=== PATIENT | male | born 1960 | race African-American/Black ===

== ENCOUNTER 2021-06-12 23:19 | Emergency (ER) | payer SELFPAY ==
[2021-06-12 23:44] VITALS: BP 152/80; PULSE 101; RESP 18; TEMP 36.8; O2SAT 98; BMI 22.5
--- NOTE | 2021-06-13 00:12 | XRR_ITS ---
PROCEDURE INFORMATION: Exam: XR Chest Exam date and time: 06/13/2021 12:12 AM Age: 60 years old Clinical indication: Pain; Chest pressure; Patient HX: C/O chest discomfort x 3 days. ; Additional info: Cp TECHNIQUE: Imaging protocol: XR of the chest. Views: 1 view. COMPARISON: No relevant prior studies available. FINDINGS: Lungs: Unremarkable. No consolidation. Pleural spaces: Unremarkable. No pleural effusion. No pneumothorax. Heart/Mediastinum: Unremarkable. No cardiomegaly. Bones/joints: No acute findings. XR/XR chest 1V portable [id number] IMPRESSION: No acute findings.
[2021-06-13 02:34] VITALS: BP 143/81; PULSE 97; RESP 14; TEMP 36.7; O2SAT 98
--- NOTE | 2021-06-13 02:36 | W.ED.GENADLT ---
HPI - General Adult General: Chief complaint: General Medical Stated complaint: TIRED Time Seen by Provider: 06/13/21 00:34 Source: patient Mode of arrival: ambulatory Limitations: no limitations History of Present Illness: 60-year-old male states that he recently got out of intermediate states that he has been walking around his been having feet pain along with chest pain over the last 2 days from walking states the pain has been constant states that it is a 4 out of 10. He denies any shortness of breath denies any worsening improving factors denies any vomiting or diarrhea. Associated symptoms: Reports chest pain; Deny dyspnea, headache(s), nausea, rash or vomiting Review of Systems Const: Denies: fever(s), chills, body aches or change in appetite Eyes: Denies: blurry vision or eye discomfort ENMT: Denies: throat pain or dental pain Card: Reports: chest pain Resp: Denies: dyspnea GI: Denies: abdominal pain, nausea, vomiting or diarrhea : Denies: dysuria Musc: Denies: neck pain or back pain Skin/Breast: Denies: rash Neuro: Denies: headache(s) Psych: Denies: depression Joni/Lymph: Denies: easy bruising All/Imm: Denies: urticaria PFSH ED PFSH: Family History (Updated 06/13/21 @ 02:39 by Dianne Vang MD) Denies family history of Cancer Social History (Updated 06/13/21 @ 02:39 by Dianne Vang MD) Alcohol intake: current Physical Exam Const: COMMON NORMALS: no acute distress, patient oriented x3 and healthy appearing HENMT: COMMON NORMALS: normocephalic and atraumatic HEAD & SCALP: normocephalic and atraumatic Eye: COMMON NORMALS: Equal, round and reactive pupils present and EOMs intact bilaterally PUPIL: Yes Equal, round and reactive pupils present Neck/C-Spine: COMMON NORMALS: full ROM and supple Chest: COMMONS NORMALS: normal inspection of the chest and normal palpation of entire chest wall Resp: COMMON NORMALS: normal respiratory effort, No retractions, No use of accessory muscles and clear to auscultation bilaterally AUSCULTATION: clear to auscultation bilaterally Cardio: COMMON NORMALS: regular rate, regular rhythm and No murmurs present (Cardio) RATE: regular rate RHYTHM: regular rhythm GI: COMMON NORMALS: Normal to inspection, nondistended, normoactive bowel sounds present, Soft to palpation, non-tender and no masses PALPATION: Yes Soft to palpation Extremity: COMMON NORMALS: normal to inspection and full ROM Neuro: COMMON NORMALS: patient oriented x3, moves all extremities and no focal motor deficits Psych: COMMON NORMALS: mental status grossly normal, Normal thought process present and cooperative THOUGHT PROCESS: Normal thought process present Skin: COMMON NORMALS: no rashes or lesions noted and no wounds GENERAL SKIN EXAM: no rashes or lesions noted Course Vital Signs: Vital signs: Vital Signs Temperature 98.1 F 06/13/21 02:34 Pulse Rate 97 06/13/21 02:34 Respiratory Rate 14 06/13/21 02:34 Blood Pressure 143/81 06/13/21 02:34 Pulse Oximetry 98 06/13/21 02:[address] [facility] - General Adult Medical Decision Making Patient presents here with chest pain is atypical in nature is been going on for days troponin EKG x-ray are all normal he is well-appearing here no signs of dissection or pulmonary embolism he is stable for discharge is to follow-up with PCP and return if worsening. Lab Data : 06/13/21 02:36 06/13/21 02:36 Radiology Impressions Chest X-Ray 06/13/21 00:12 IMPRESSION: No acute findings. Laboratory Results WBC 11.1 10^3/uL (4.0-10.0) H 06/13/21 02:36 RBC 4.69 10^6/uL (4.1-5.3) 06/13/21 02:36 Hgb 13.9 g/dL (11.7-16.6) 06/13/21 02:36 Hct 43.0 % (42.0-52.0) 06/13/21 02:36 MCV 91.7 fl (80-94) 06/13/21 02:36 MCH 29.6 pg (28.0-34.0) 06/13/21 02:36 MCHC 32.3 g/dL (30.0-36.0) 06/13/21 02:36 RDW 12.4 % (12.1-15.1) 06/13/21 02:36 Plt Count 401 10^3/cmm (130-400) H 06/13/21 02:36 MPV 9.2 fL (7.4-10.4) 06/13/21 02:36 Neut % (Auto) 61.1 % 06/13/21 02:36 Lymph % (Auto) 21.0 % 06/13/21 02:36 [place] % (Auto) 13.5 % 06/13/21 02:36 Eos % (Auto) 2.7 % 06/13/21 02:36 Baso % (Auto) 1.1 % 06/13/21 02:36 Neut # (Auto) 6.76 10^3/uL (1.8-7.7) 06/13/21 02:36 Lymph # (Auto) 2.3 10^3/uL (0.8-4.8) 06/13/21 02:36 [place] # (Auto) 1.5 10^3/uL (0.2-0.9) H 06/13/21 02:36 Eos # (Auto) 0.3 10^3/uL (0.0-0.8) 06/13/21 02:36 Baso # (Auto) 0.1 10^3/uL (0.0-0.1) 06/13/21 02:36 Nucleated RBC % (auto) 0 % 06/13/21 02:36 Nucleated RBCs # 0.0 /100WBC 06/13/21 02:36 Sodium 140 mmol/L (136-145) 06/13/21 02:36 Potassium 4.2 mmol/L (3.5-5.1) 06/13/21 02:36 Chloride 100 mmol/L (98-107) 06/13/21 02:36 Carbon Dioxide 27 mmol/L (22-29) 06/13/21 02:36 Anion Gap 17.2 (5-19) 06/13/21 02:36 BUN 7 mg/dL (6-20) 06/13/21 02:36 Creatinine 0.7 mg/dL (0.7-1.2) 06/13/21 02:36 GFR Calculation 139.7 mL/min (90-130) H 06/13/21 02:36 Glucose 121 mg/dL (65-115) H 06/13/21 02:36 Calculated Osmolality 289 mOsm/kg (285-295) 06/13/21 02:36 Calcium 8.2 mg/dL (8.5-10.5) L 06/13/21 02:36 Total Bilirubin 0.2 mg/dL (0.15-1.2) 06/13/21 02:36 AST 25 U/L (0-40) 06/13/21 02:36 ALT 17 U/L (0-41) 06/13/21 02:36 Alkaline Phosphatase 126 IU/L (40-130) 06/13/21 02:36 Troponin T Baseline 9 ng/L (0-15) 06/13/21 02:36 Total Protein 8.1 g/dL (6.6-8.7) 06/13/21 02:36 Albumin 3.6 g/dL (3.5-5.2) 06/13/21 02:36 Globulin 4.5 g/dL (1.3-4.6) 06/13/21 02:36 EKG Data EKG 1: I personally reviewed and interpreted this EKG as follows: EKG interpretation date: 06/12/21 EKG interpretation time: 23:52 Interpretation: nsr hr [address] or t wave abnormalities qrs 86 qtc 434 Computer generated interpretation: Chest X-Ray 06/13/21 00:12 IMPRESSION: No acute findings. Discharge Plan Discharge Patient Disposition: Home Clinical Impression: Chest pain Qualifiers: Chest pain type: unspecified Qualified Code(s): R07.9 - Chest pain, unspecified Discharge Orders: Discharge ED (Routine); Ordered 06/13/21 Ordered By: Dianne Vang Discharge Diet: Advance as tolerated Discharge Activity: Resume usual activity Patient Instructions: Chest Pain (ED) Coding Level of Care Code ED Student Admissions Clerk for Chg Fwd Exam Comprehensive
--- NOTE | 2021-06-13 02:40 | PC.NURSE ---
patient received with c/o chest pain that started 2-3 days ago. states this is the 3rd ER in a few days for same. states just pain in chest. denies daily medications speech clear, sentences complete. respirations even equal and unlabored.
[2021-06-13 02:42] LABS: Basophils # 0.1 10^3/uL (0.0-0.1); Basophils % 1.1 %; Eosinophils # 0.3 10^3/uL (0.0-0.8); Eosinophils % 2.7 %; Hemoglobin 13.9 g/dL (11.7-16.6); Lymphocytes # 2.3 10^3/uL (0.8-4.8); Mean Corpuscular HGB Conc 32.3 g/dL (30.0-36.0); Mean Corpuscular Hemoglobin 29.6 pg (28.0-34.0); Mean Corpuscular Volume 91.7 fl (80-94); Mean Platelet Volume 9.2 fL (7.4-10.4); Monocytes # 1.5 10^3/uL (0.2-0.9); Monocytes % 13.5 %; Neutrophils # 6.76 10^3/uL (1.8-7.7); Neutrophils % 61.1 %; Nucleated Red Blood Cells % 0 %; Platelet Count 401 10^3/cmm (130-400); Red Blood Count 4.69 10^6/uL (4.1-5.3); Red Cell Distribution Width 12.4 % (12.1-15.1); White Blood Count 11.1 10^3/uL (4.0-10.0)
[2021-06-13] MEDS: ketorolac 30 mg/mL INJ 15 MG IVP (02:54)
[2021-06-13 03:05] LABS: Alanine Aminotransferase 17 U/L (0-41); Albumin Level 3.6 g/dL (3.5-5.2); Alkaline Phosphatase 126 IU/L (40-130); Anion Gap 17.2 (5-19); Aspartate Amino Transferase 25 U/L (0-40); Blood Urea Nitrogen 7 mg/dL (6-20); Calcium 8.2 mg/dL (8.5-10.5); Carbon Dioxide 27 mmol/L (22-29); Chloride 100 mmol/L (98-107); Creatinine Clr Calc Pharmacy 148.6723; Globulin 4.5 g/dL (1.3-4.6); Glomerular Filtration Rate 139.7 mL/min (90-130); Glucose 121 mg/dL (65-115); Osmolality Calculated 289 mOsm/kg (285-295); Potassium 4.2 mmol/L (3.5-5.1); Sodium 140 mmol/L (136-145); Total Bilirubin 0.2 mg/dL (0.15-1.2); Total Protein 8.1 g/dL (6.6-8.7)
[2021-06-13 03:06] LABS: Troponin(5th) Baseline 9 ng/L (0-15)
[2021-06-13 03:57] VITALS: BP 158/79; PULSE 79; RESP 18; TEMP 36.4
== END 2021-06-13 03:58 | disposition home or self-care (01) ==
PROVIDERS: Emergency Provider Emergency Medicine
DX: R07.9 Chest pain, unspecified (principal)
CPT/HCPCS: 36415; 71045; 80053; 84484; 85025; 96374; 99284; J1885

== ENCOUNTER 2021-06-13 12:41 | Inpatient (IN) | payer SELFPAY ==
[2021-06-13 12:48] VITALS: BP 185/124; PULSE 82; RESP 16; TEMP 36.3; O2SAT 98; BMI 21.9
--- NOTE | 2021-06-13 13:09 | ED.C_ITS ---
HPI - Psych General: Chief Complaint: Psychiatric Symptoms Stated Complaint: Aysha Sanon Time Seen by Provider: 06/13/21 13:00 Source: patient Mode of arrival: ambulatory Limitations: no limitations History of Present Illness: Patient is a 60-year-old male who presents to ED today with a complaint of suicidal ideations. Patient states his suicidal thoughts just started today after he was told by his girlfriend of 10 years that she no longer wants to be with him. He states he feels like giving up . He also apparently lost his job recently. Patient states he has no specific plan. He has not suffered with suicidal ideations previously. He has no previous suicide attempts. He denies drug use but states he is from [place] and in [place] because he had court because of drugs . No HI/hallucinations. Of note patient was seen earlier today for complaints of chest pain. Patient states he has had pain for approximately 3 to 4 weeks now. Pain does not seem to be exertional. No change from his visit earlier this morning. Patient received cardiac work-up on his earlier visit. I do not feel like this needs to be repeated on this visit. complaint: suicidal ideation and feels depressed Onset (ago): hour(s) History of same: No Relieving factors: none Context: significant life stressor Associated psychiatric symptoms: none Associated symptoms: Reports depression and suicidal ideation; Deny auditory hallucinations, visual hallucinations or homicidal ideation Treatments prior to arrival: none Review of Systems Const: Denies: fever(s) or chills Card: Reports: chest pain (was just here for this earlier today); Denies: palpitations, lightheadedness or syncope Resp: Denies: dyspnea GI: Denies: abdominal pain, nausea, vomiting or diarrhea Skin/Breast: Denies: rash Neuro: Denies: headache(s) Psych: Reports: depression, hopelessness and suicidal ideation; Denies: anxiety, visual hallucinations, auditory hallucinations or homicidal ideation [facility] ED PFSH: Family History (Updated 06/13/21 @ 02:39 by Dianne Vang MD) Denies family history of Cancer Social History Alcohol intake: current Physical Exam Const: COMMON NORMALS: no acute distress, patient oriented x3, no limitations and alert GENERAL APPEARANCE: cooperative Resp: COMMON NORMALS: normal respiratory effort and clear to auscultation bilaterally AUSCULTATION: clear to auscultation bilaterally Cardio: COMMON NORMALS: regular rate and regular rhythm RATE: regular rate RHYTHM: regular rhythm Neuro: KHALIF COMA SCALE: document GCS findings Khalif coma scale eye opening: Spontaneous Khalif coma scale verbal response: Orientated [place] coma scale motor response: Obey commands [place] coma scale total score: 15 COMMON NORMALS: patient oriented x3 SENSORIUM/ORIENTATION: Yes alert Psych: COMMON NORMALS: mental status grossly normal, Normal thought process present, cooperative, speech normal, activity/motor behavior normal, denies hallucinations and denies homicidal ideation APPEARANCE: Yes grossly normal ATTITUDE: Yes calm SPEECH: Yes normal speech MOOD & AFFECT: Yes Flat affect present THOUGHT PROCESS: Normal thought process present THOUGHT CONTENT: Yes Normal thought content present ATTENTION/CONCENTRATION: Yes attention grossly intact and Yes concentration grossly intact MEM ORY/COGNITION: Yes memory grossly intact and Yes cognition grossly intact INSIGHT: Good insight present (Psych) JUDGEMENT: Good judgement present (Psych) Course Consultations: Consultation #1: Dr. Pablo-accepts to NPU, patient is voluntary at this time Vital Signs: Vital signs: Vital Signs Temperature 97.4 F L 06/13/21 12:48 Pulse Rate 82 06/13/21 12:48 Respiratory Rate 16 06/13/21 12:48 Blood Pressure 185/124 06/13/21 12:48 Pulse Oximetry 98 06/13/21 12:48 [facility] - Psych Medical Decision Making Plan to admit to NPU per Dr. Pablo for SI. Lab Data : 06/13/21 13:40 06/13/21 13:40 Laboratory Results WBC 10.9 10^3/uL (4.0-10.0) H 06/13/21 13:40 RBC 4.56 10^6/uL (4.1-5.3) 06/13/21 13:40 Hgb 13.8 g/dL (11.7-16.6) 06/13/21 13:40 Hct 42.5 % (42.0-52.0) 06/13/21 13:40 MCV 93.2 fl (80-94) 06/13/21 13:40 MCH 30.3 pg (28.0-34.0) 06/13/21 13:40 MCHC 32.5 g/dL (30.0-36.0) 06/13/21 13:40 RDW 12.6 % (12.1-15.1) 06/13/21 13:40 Plt Count 400 10^3/cmm (130-400) 06/13/21 13:40 MPV 9.4 fL (7.4-10.4) 06/13/21 13:40 Neut % (Auto) 62.8 % 06/13/21 13:40 Lymph % (Auto) 17.3 % 06/13/21 13:40 [place] % (Auto) 15.1 % 06/13/21 13:40 Eos % (Auto) 3.0 % 06/13/21 13:40 Baso % (Auto) 1.3 % 06/13/21 13:40 Neut # (Auto) 6.86 10^3/uL (1.8-7.7) 06/13/21 13:40 Lymph # (Auto) 1.9 10^3/uL (0.8-4.8) 06/13/21 13:40 [place] # (Auto) 1.7 10^3/uL (0.2-0.9) H 06/13/21 13:40 Eos # (Auto) 0.3 10^3/uL (0.0-0.8) 06/13/21 13:40 Baso # (Auto) 0.1 10^3/uL (0.0-0.1) 06/13/21 13:40 Nucleated RBC % (auto) 0 % 06/13/21 13:40 Nucleated RBCs # 0.0 /100WBC 06/13/21 13:40 Sodium 140 mmol/L (136-145) 06/13/21 13:40 Potassium 4.4 mmol/L (3.5-5.1) 06/13/21 13:40 Chloride 102 mmol/L (98-107) 06/13/21 13:40 Carbon Dioxide 28 mmol/L (22-29) 06/13/21 13:40 Anion Gap 14.4 (5-19) 06/13/21 13:40 BUN 10 mg/dL (6-20) 06/13/21 13:40 Creatinine 0.8 mg/dL (0.7-1.2) 06/13/21 13:40 GFR Calculation 119.7 mL/min (90-130) 06/13/21 13:40 Glucose 68 mg/dL (65-115) 06/13/21 13:40 Calculated Osmolality 287 mOsm/kg (285-295) 06/13/21 13:40 Calcium 9.0 mg/dL (8.5-10.5) 06/13/21 13:40 Total Bilirubin 0.3 mg/dL (0.15-1.2) 06/13/21 13:40 AST 24 U/L (0-40) 06/13/21 13:40 ALT 14 U/L (0-41) 06/13/21 13:40 Alkaline Phosphatase 115 IU/L (40-130) 06/13/21 13:40 Total Protein 8.0 g/dL (6.6-8.7) 06/13/21 13:40 Albumin 3.6 g/dL (3.5-5.2) 06/13/21 13:40 Globulin 4.4 g/dL (1.3-4.6) 06/13/21 13:40 Salicylates 0.4 mg/dL (3-10) L 06/13/21 13:40 Urine Opiates Screen Negative ng/mL (Negative) 06/13/21 13:40 Acetaminophen < 5.0 ug/mL (10-30) L 06/13/21 13:40 Ur Barbiturates Screen Negative ng/mL (Negative) 06/13/21 13:40 Ur Phencyclidine Scrn Negative ng/mL (Negative) 06/13/21 13:40 Ur Amphetamines Screen Negative ng/mL (Negative) 06/13/21 13:40 U Benzodiazepines Scrn Negative ng/mL (Negative) 06/13/21 13:40 Urine Cocaine Screen Negative ng/mL (Negative) 06/13/21 13:40 U Marijuana (THC) Screen Positive ng/mL (Negative) H 06/13/21 13:40 Ethyl Alcohol < 10 mg/dL (0-10) 06/13/21 13:40 Discharge Plan Discharge Patient Disposition: Admitted As Inpatient Clinical Impression: Suicidal ideation Condition: Stable Prescriptions: No Action propranolol 20 mg Tablet 20 mg PO DAILY 0RF Coding Level of Care Code ED Doper for Chg Fwd Exam Detailed
[2021-06-13 13:46] LABS: Basophils # 0.1 10^3/uL (0.0-0.1); Basophils % 1.3 %; Eosinophils # 0.3 10^3/uL (0.0-0.8); Hematocrit 42.5 % (42.0-52.0); Hemoglobin 13.8 g/dL (11.7-16.6); Lymphocytes # 1.9 10^3/uL (0.8-4.8); Lymphocytes % 17.3 %; Mean Corpuscular HGB Conc 32.5 g/dL (30.0-36.0); Mean Corpuscular Hemoglobin 30.3 pg (28.0-34.0); Mean Corpuscular Volume 93.2 fl (80-94); Mean Platelet Volume 9.4 fL (7.4-10.4); Monocytes # 1.7 10^3/uL (0.2-0.9); Monocytes % 15.1 %; Neutrophils # 6.86 10^3/uL (1.8-7.7); Neutrophils % 62.8 %; Nucleated Red Blood Cells % 0 %; Platelet Count 400 10^3/cmm (130-400); Red Blood Count 4.56 10^6/uL (4.1-5.3); Red Cell Distribution Width 12.6 % (12.1-15.1); White Blood Count 10.9 10^3/uL (4.0-10.0)
[2021-06-13 14:13] LABS: Amphetamines Screen Urine Negative (Negative); Barbiturates Screen Urine Negative (Negative); Cocaine Screen Urine Negative (Negative); Opiate Screen Urine Negative (Negative); PCP Screen Urine Negative (Negative); THC Screen Urine Positive (Negative)
[2021-06-13 14:14] LABS: Benzodiazepines Screen Urine Negative (Negative)
[2021-06-13 14:22] LABS: Alanine Aminotransferase 14 U/L (0-41); Albumin Level 3.6 g/dL (3.5-5.2); Alkaline Phosphatase 115 IU/L (40-130); Anion Gap 14.4 (5-19); Aspartate Amino Transferase 24 U/L (0-40); Blood Urea Nitrogen 10 mg/dL (6-20); Carbon Dioxide 28 mmol/L (22-29); Chloride 102 mmol/L (98-107); Globulin 4.4 g/dL (1.3-4.6); Glomerular Filtration Rate 119.7 mL/min (90-130); Glucose 68 mg/dL (65-115); Osmolality Calculated 287 mOsm/kg (285-295); Potassium 4.4 mmol/L (3.5-5.1); Salicylate 0.4 mg/dL (3-10); Sodium 140 mmol/L (136-145); Total Bilirubin 0.3 mg/dL (0.15-1.2)
[2021-06-13 14:28] LABS: Acetaminophen < 5.0 ug/mL (10-30); Alcohol Level < 10 mg/dL (0-10)
[2021-06-13 16:07] VITALS: BP 190/40; PULSE 74; RESP 18; TEMP 36.8; O2SAT 98
[2021-06-13] MEDS: propranolol 20 mg Tablet PO (17:01)
--- NOTE | 2021-06-13 18:21 | PC.NURSE ---
BP reassessed after meds given, HR 84, BP 139/89
[2021-06-13 22:00] VITALS: BP 151/80; PULSE 88; RESP 14; TEMP 36.8; O2SAT 95
[2021-06-13] MEDS: trazodone 50 mg Tablet PO (23:51)
--- NOTE | 2021-06-14 02:31 | PC.NURSE ---
[id number] Patient is at the nurse's station asking for something to help him sleep. Trazadone 50mg po was given. This med was effective as the patient is still resting quietly.
[2021-06-14 06:00] VITALS: BP 165/94; PULSE 71; RESP 18; TEMP 36.9; O2SAT 99
[2021-06-14] MEDS: propranolol 20 mg Tablet PO (10:28)
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
[2021-06-14 14:00] VITALS: BP 138/79; PULSE 69; RESP 18; TEMP 36.6; O2SAT 99
[2021-06-14 20:49] VITALS: BP 164/88; PULSE 67; RESP 17; TEMP 36.3; O2SAT 99
[2021-06-14] MEDS: hyDROXYzine 25 mg Capsule 50 MG PO (20:59)
[2021-06-14] MEDS: trazodone 50 mg Tablet PO (21:00)
[2021-06-15 06:00] VITALS: BP 156/86; PULSE 72; RESP 18; TEMP 36.5; O2SAT 98
[2021-06-15] MEDS: propranolol 20 mg Tablet PO (10:55)
[2021-06-15 14:00] VITALS: BP 157/72; PULSE 88; RESP 17; TEMP 36.9; O2SAT 98
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
[2021-06-15 21:37] VITALS: BP 159/76; PULSE 68; RESP 17; TEMP 37.1; O2SAT 93
[2021-06-16 06:00] VITALS: BP 150/87; PULSE 65; RESP 18; TEMP 36.9; O2SAT 97
[2021-06-16] MEDS: propranolol 20 mg Tablet PO (09:05)
[2021-06-16 14:00] VITALS: BP 148/92; PULSE 67; RESP 16; TEMP 36.7; O2SAT 98
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
[2021-06-16] MEDS: trazodone 50 mg Tablet PO ×2 (20:59→23:15)
[2021-06-16 21:26] VITALS: BP 155/95; PULSE 77; RESP 17; TEMP 36.7; O2SAT 97
--- NOTE | 2021-06-17 05:17 | PC.NURSE ---
Patient c/o trouble getting to sleep, requested PRN trazodone, given as ordered with no effectiveness. Patient returned after 2 hrs stating he was still having trouble getting to sleep. 2nd dose of trazodone given as ordered with noted efectiveness.
[2021-06-17 06:00] VITALS: BP 158/113; PULSE 82; RESP 20; TEMP 36.7; O2SAT 98; BMI 21.9
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
[2021-06-17] MEDS: propranolol 20 mg Tablet PO (09:41)
[2021-06-17 14:00] VITALS: BP 128/80; PULSE 88; RESP 17; TEMP 36.8; O2SAT 98
[2021-06-17] MEDS: nicotine 21 mg Patch 1 PATCH TRANSDERMA (14:27)
[2021-06-17] MEDS: trazodone 50 mg Tablet PO ×2 (20:29→23:48)
[2021-06-17 20:36] VITALS: BP 164/97; PULSE 77; RESP 17; TEMP 37.1; O2SAT 97
[2021-06-17 22:00] VITALS: BP 146/91
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
[2021-06-18 06:00] VITALS: BP 124/73; PULSE 83; RESP 18; TEMP 36.6; O2SAT 96
[2021-06-18 07:51] VITALS: BP 124/73; PULSE 83; RESP 18; TEMP 36.6; O2SAT 96
[2021-06-18] MEDS: propranolol 20 mg Tablet PO (08:07)
--- NOTE | 2021-06-18 18:22 | P.NPUCON_ITS ---
Providers/Reason for Consult Consulting Physican/Specialty*: Jme Pablo MD. Psychiatry. Reason for Consult*: Evaluate for safety for discharge. Requesting Physcian: Dianne Vang Attending Physician: Jem Pablo MD Psych Consult HPI History of Present Illness Hunter Beck is a 60 year old male who presented to the emergency room with the following report: D Chief Complaint: Psychiatric Symptoms Stated Complaint: SI Time Seen by Provider: 06/18/21 19:06 Source: patient and EMS Mode of arrival: EMS Limitations: no limitations History of Present Illness:?? 60-year-old male has been here multiple times over the last 2 weeks.? Patient was admitted this week for suicidal ideation was discharged this morning.? He states that he is homeless and he just does not know what to do he states he does have some depression denies any suicidal plan but has had passing thoughts denies any worsening or improving factors denies any pain anywhere. Associated symptoms: Reports depression Patient presented with some concern for lethality and had just been discharged from the inpatient unit so psychiatric consult was requested to identify a need for ongoing acute psychiatric care. Patient reports that he went to the his court hearing only to find out it was not first thing this morning but at 1 PM today to walk around for 4 hours or more waiting for his time. After that his sensing was slated for August and he reports he has a court case in [place] that he needs to get to tomorrow. He reports that he is trying to get family members to assist him but that he only has $25. We brainstormed different opt ions that could be considered. Essentially he agreed that his purpose for coming was trying to see if some way he had resources to assist him in getting tomorrow and he denied any lethality whatsoever. He ultimately expressed appreciation for what we have done thus far to help him and reports that he would continue to press family and significant others to see if they can help him get to [place]. He denied any new concerns since discharge. Meds Home Medications and Allergies Home Medications Medication Instructions Recorded Confirmed Last Taken Type propranolol 20 mg tablet 20 mg PO DAILY 30 Days #30 tab 06/18/21 Unknown Rx Allergies Allergy/AdvReac Type Severity Reaction Status Date / Time No Known Allergies Allergy Verified 06/12/21 23:44 PFSH NPU PFSH: Family History Denies family history of Cancer Social History Alcohol intake: current Mental Status Exam MSE Comments: This is a tall/slender well-nourished -[place] male with hospital scrubs on with adequate grooming and eye contact.? No abnormal movements except for mild psychomotor retardation.? Cooperative with exam in no acute distress.? Speech was slightly decreased rate normal volume and a heaviness to his tongue when he speaking.? Mood described as good, affect congruent.? Thought process organized.? Thought content: Patient denied suicidal or homicidal ideation, there were no delusions reported or noted, he denied any auditory or visual hallucinations.? Attention and concentration appeared intact and memory seemed reliable but none were formally tested.? He is alert and or iented x3.? Insight and judgment are limited, impulse control limited. Vitals/I&O/Wt Last Vital Signs Temp 98 F 06/18/21 07:51 Pulse 83 06/18/21 07:51 Resp 18 06/18/21 07:51 BP 124/73 06/18/21 07:51 Pulse Ox 96 06/18/21 07:51 Data NPU : 06/13/21 13:40 06/13/21 13:40 A&P Assessment and plan (1) Cannabis dependence: Status: Acute (2) Alcohol use disorder, severe, dependence: Status: Acute (3) Adjustment disorder with mixed disturbance of emotions and conduct: Status: Acute (4) Partner relational problem: Status: Acute (5) Problems related to other legal circumstances: Status: Acute Plan This is a 60-year-old -[place] male with recent partner relational problem and significant psychosocial stressors with a long history of addiction from his used to current who presents having discharged today with his court case in [place] and having some concerns with his legal challenges tomorrow in [place] with limited resources trying to explore options. 1. No current psychiatric concerns at this time. 2. Agree with discharge to home. Involuntary Hold Information 96 Hour Hold: 96 Hour Involuntary Admission: No Attestations NPU Medical Necessity Statement*: N/A. See primary team note for medical necessity but no need for ongoing psychiatric care noted. Coding Level of Care Code Acute Bookmobile Librarian for [facility] [place] Fwd Diagnoses Cannabis dependence F12.20 Alcohol use disorder, severe, dependence F10.20 Adjustment disorder with mixed disturbance of emotions and conduct F43.25 Partner relational problem Z63.0 Problems related to other legal circumstances Z65.3
== END 2021-06-18 08:30 | disposition home or self-care (01) | DRG 881 ==
LOC: ER 14:42 → NP 06-14 11:51
PROVIDERS: Admitting Provider Psychiatry & Neurology Psychiatry; Emergency Provider Physician Assistant; Visit Provider Psychiatry & Neurology Psychiatry
DX: F32.A Depression, unspecified (principal); R45.851 Suicidal ideations; F43.25 Adjustment disorder with mixed disturbance of emotions and conduct; Z63.0 Problems in relationship with spouse or partner; R07.9 Chest pain, unspecified; F10.20 Alcohol dependence, uncomplicated; F12.20 Cannabis dependence, uncomplicated
CPT/HCPCS: 80053; 80306; 80307; 85025; 97165; 99285

== ENCOUNTER 2021-06-18 19:03 | Emergency (ER) | payer SELFPAY ==
--- NOTE | 2021-06-18 19:12 | ED.C_ITS ---
HPI - Psych General: Chief Complaint: Psychiatric Symptoms Stated Complaint: SI Time Seen by Provider: 06/18/21 19:06 Source: patient and EMS Mode of arrival: EMS Limitations: no limitations History of Present Illness: 60-year-old male has been here multiple times over the last 2 weeks. Patient was admitted this week for suicidal ideation was discharged this morning. He states that he is homeless and he just does not know what to do he states he does have some depression denies any suicidal plan but has had passing thoughts denies any worsening or improving factors denies any pain anywhere. Associated symptoms: Reports depression Review of Systems Const: Denies: fever(s), chills, body aches or change in appetite Eyes: Denies: blurry vision or eye discomfort ENMT: Denies: throat pain or dental pain Card: Denies: chest pain Resp: Denies: dyspnea GI: Denies: abdominal pain, nausea, vomiting or diarrhea : Denies: dysuria Musc: Denies: neck pain or back pain Skin/Breast: Denies: rash Neuro: Denies: headache(s) Psych: Reports: depression Joni/Lymph: Denies: easy bruising All/Imm: Denies: urticaria PFSH ED PFSH: Family History Denies family history of Cancer Social History Alcohol intake: current Physical Exam Const: COMMON NORMALS: no acute distress, patient oriented x3 and healthy appearing HENMT: COMMON NORMALS: normocephalic and atraumatic HEAD & SCALP: normocephalic and atraumatic Eye: COMMON NORMALS: Equal, round and reactive pupils present and EOMs intact bilaterally PUPIL: Yes Equal, round and reactive pupils present Neck/C-Spine: COMMON NORMALS: full ROM and supple Chest: COMMONS NORMALS: normal inspection of the chest and normal palpation of entire chest wall Resp: COMMON NORMALS: normal respiratory effort, No retractions, No use of accessory muscles and clear to auscultation bilaterally AUSCULTATION: clear to auscultation bilaterally Cardio: COMMON NORMALS: regular rate, regular rhythm and No murmurs present (Cardio) RATE: regular rate RHYTHM: regular rhythm GI: COMMON NORMALS: Normal to inspection, nondistended, normoactive bowel sounds present, Soft to palpation, non-tender and no masses PALPATION: Yes Soft to palpation Extremity: COMMON NORMALS: normal to inspection and full ROM Neuro: COMMON NORMALS: patient oriented x3, moves all extremities and no focal motor deficits Psych: COMMON NORMALS: mental status grossly normal, Normal thought process present and cooperative THOUGHT PROCESS: Normal thought process present Skin: COMMON NORMALS: no rashes or lesions noted and no wounds GENERAL SKIN EXAM: no rashes or lesions noted Course Vital Signs: Vital signs: Vital Signs Temperature 97.6 F 06/18/21 19:13 Pulse Rate 84 06/18/21 19:13 Respiratory Rate 18 06/18/21 19:13 Blood Pressure 123/80 06/18/21 19:13 Pulse Oximetry 96 06/18/21 19:13 [facility] - Psych Medical Decision Making Patient presents here with depression he was actually discharged from the psych unit this morning Dr. Pablo was consulted his talk to patient he is not suicidal or homicidal or threat to himself he is stable for discharge at this time. Discharge Plan Discharge Patient Disposition: Home Clinical Impression: Depression Condition: Stable Prescriptions: No Action propranolol 20 mg Tablet 20 mg PO DAILY 30 Days Qty: 30 1RF Discharge Orders: Discharge ED (Routine); Ordered 06/18/21 Ordered By: Dianne Vang Discharge Diet: Advance as tolerated Discharge Activity: Resume usual activity Patient Instructions: Depression (ED) Coding Level of Care Code ED Chalk Machine Operator for Karyn Morales Exam Comprehensive
[2021-06-18 19:13] VITALS: BP 123/80; PULSE 84; RESP 18; TEMP 36.4; O2SAT 96; BMI 22.5
[2021-06-18 22:26] VITALS: BP 142/88; PULSE 88; RESP 18; O2SAT 98
== END 2021-06-18 22:27 | disposition home or self-care (01) ==
PROVIDERS: Emergency Provider Emergency Medicine
DX: F32.A Depression, unspecified (principal)
CPT/HCPCS: 99283